=== PATIENT | male | born 1995 | race Caucasian/White ===

== ENCOUNTER 2016-10-08 00:09 | Emergency (ER) | payer OTHER ==
[~2016-10-08] VITALS: Ht 152.4 cm; Wt 47.6 kg
[~2016-10-08 00:09] MED LIST: AMOXIL500 MG PO; PROAIR HFA0.09 MG/Ac INH; PROVENTIL0.09 MG/A1
--- NOTE | 2016-10-08 00:15 | ED DYSPNEA/ASTHMA COMPLAINT ---
History of Present Illness General Chief Complaint: Wheezing/Asthma Stated Complaint: " ASTHMA ATTACK HX OF THE SAME" Source: patient Exam Limitations: no limitations Vital Signs & Intake/Output Vital Signs & Intake/Output Vital Signs Date Time Temp Pulse Resp B/P B/P Pulse O2 O2 Flow FiO2 Mean Ox Delivery Rate 10/08 0218 102.9 122 18 121/57 91 Room Air 10/08 0022 Room Air 10/08 0018 100.1 126 20 146/67 95 Room Air Allergies Coded Allergies: NO KNOWN ALLERGIES (08/26/14) Reconcile Medications Albuterol Sulfate (Proventil Hfa) 90 MCG HFA.AER.AD ASTHMA (Reported) Albuterol Sulfate (Ventolin Hfa) 90 MCG HFA.AER.AD 2 PUF INH Q4-6 PRN PRN WHEEZE Albuterol Sulfate (Proair Hfa) 0.09 MG/Actuation JAMAL 2 PUFF INH Q6P PRN WHEEZE Amoxicillin (Amoxil) 500 MG CAP 1 TAB PO TID BRONCHITIS Amoxicillin/Potassium Clav (Augmentin 875-125 Tablet) 875 MG-125 MG TABLET 1 TAB PO BID BRONCHITIS Ibuprofen 600 MG TABLET 1 TAB PO TID PRN FEVER with food Prednisone 50 MG TABLET 1 TAB PO DAILY ASTHMA Triage Nurses Notes Reviewed? yes Onset: Gradual Duration: day(s): Timing: recent history Severity: moderate Activities at Onset: none Prior Episodes/Possible Cause: occasional episodes Modifying Factors: Improves With: rest. Associated Symptoms: cough, wheezing HPI: 20-year-old gentleman history of asthma, history of cigarette smoking, presents with 3-4 days of cough wheezing and productive of phlegm. He presented to an acute care clinic and was given an albuterol inhaler. He states that the albuterol inhaler helps somewhat but that he continues to wheeze and be slightly short of breath. He notes that his phlegm has increased. Tonight, his coughing and wheezing was unabated with his albuterol. He presents to emergency department for further care. Of note he denies fever chills chest pain rashes. He is otherwise well and has no other concerns. Past History Travel History Traveled to [place] past 21 day No Medical History Any Pertinent Medical History? 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 No Review of Systems Review of Systems Constitutional: Reports: no symptoms. EENTM: Reports: no symptoms. Respiratory: Reports: no symptoms. Cardiovascular: Reports: no symptoms. GI: Reports: no symptoms. Genitourinary: Reports: no symptoms. Musculoskeletal: Reports: no symptoms. Skin: Reports: no symptoms. Neurological/Psychological: Reports: no symptoms. Hematologic/Endocrine: Reports: no symptoms. Immunologic/Allergic: Reports: no symptoms. All Other Systems: Reviewed and Negative Physical Exam Physical Exam General Appearance: well developed/nourished, awake, mild distress, moderate distress Head: atraumatic Eyes: Bilateral: normal appearance. Ears, Nose, Throat: normal pharynx, normal ENT inspection Neck: normal inspection Respiratory: normal breath sounds, wheezing Cardiovascular: regular rate/rhythm Gastrointestinal: normal bowel sounds, soft, non-tender Extremities: normal inspection Neurologic/Psych: no motor/sensory deficits, awake, alert, oriented x 3 Skin: intact, normal color, warm/dry Core Measures ACS in differential dx? No Severe Sepsis Present: No Septic Shock Present: No Progress Differential Diagnosis: asthma, bronchitis, CHF, COPD Plan of Care: Current Medications Sig/Ana Luisa Start time Last Medication Dose Stop Time Status Admin Ibuprofen 800 MG ONCE ONE 10/08 0230 UNVr (Motrin) 10/08 0231 Initial ED EKG: none Departure Departure Disposition: HOME OR SELF CARE Condition: Stable Clinical Impression Primary Impression: Asthma exacerbation Secondary Impressions: Bronchitis Referrals: ESTRADA FERREIRA MD (PCP/Family) Departure Forms: Customer Survey General Discharge Information Prescriptions: Current Visit Scripts Prednisone 1 TAB PO DAILY #4 TAB Amoxicillin/Potassium Clav (Augmentin 875-125 Tablet) 1 TAB PO BID #20 TAB Ibuprofen 1 TAB PO TID PRN FEVER #30 TAB with food Albuterol Sulfate (Ventolin Hfa) 2 PUF INH Q4-6 PRN PRN WHEEZE #1 INHAL Ref 3 Comments 10/08/16, 2;20AM... Pt feeling well, 02 sat 94% on room air... fever noted at discharge.. pt covered with abx with low PORT score. Pt safe for discharge with close follow up advised. Critical Care Note Critical Care Note Critical Care Time: non-applicable
[2016-10-08] MEDS ORDERED: PREDNISONE50 M1 PO (00:19)
[2016-10-08] MEDS ORDERED: AUGMENTIN 875-1 EACH PO (00:19)
[2016-10-08 02:18] VITALS: BP 121/57
[2016-10-08] MEDS ORDERED: IBUPROFEN600 M1 PO (02:19)
[2016-10-08] MEDS ORDERED: VENTOLIN HFA18 GM INH (02:19)
== END 2016-10-08 02:26 ==
LOC: ERH 00:09
DX: J45.901 Unspecified asthma with (acute) exacerbation (principal); F17.210 Nicotine dependence, cigarettes, uncomplicated
CPT/HCPCS: 1263; J3490